=== PATIENT | male | born 1960 | race Caucasian/White ===

== ENCOUNTER 2021-09-25 17:13 | Emergency (ER) | payer MEDICAID ==
[2021-09-25] MEDS ORDERED: Acetaminophen 500 MG Tab PO STA (18:58)
[2021-09-25] MEDS ORDERED: Ibuprofen 800 MG Tab PO STA (18:58)
[2021-09-25] MEDS ORDERED: Acetaminophen 500 MG Tab ONE (18:59)
[2021-09-25] MEDS ORDERED: Ibuprofen 800 MG Tab ONE (18:59)
== END 2021-09-25 19:15 ==
LOC: FB.ED 17:13
DX: S63.501A Unspecified sprain of right wrist, initial encounter (principal); S09.90XA Unspecified injury of head, initial encounter; Z88.8 Allergy status to other drugs, medicaments and biological substances; W18.09XA Striking against other object with subsequent fall, initial encounter
CPT/HCPCS: 70450; 73080-RT; 73110-RT; 99283; 99284-25; A9270-GY

== ENCOUNTER 2021-10-03 15:15 | Emergency (ER) | payer MEDICAID ==
[2021-10-03] MEDS ORDERED: Sodium Chloride 0.9% 10 ML Syringe FLUSH PRN (15:29)
[2021-10-03] MEDS ORDERED: Prochlorperazine 10 MG/2 ML SDV IVPUSH ONE (15:30)
[2021-10-03] MEDS ORDERED: Sodium Chloride 0.9% 1,000 ML IV ONE (15:30)
[2021-10-03] MEDS ORDERED: diphenhydrAMINE 50 MG/ML SDV IVPUSH ONE (15:31)
[2021-10-03] MEDS ORDERED: Ketorolac 30 MG/ML SDV IM ONE (16:58)
== END 2021-10-03 17:50 ==
LOC: FB.ED 15:15
DX: L03.113 Cellulitis of right upper limb (principal); F07.81 Postconcussional syndrome; Z88.8 Allergy status to other drugs, medicaments and biological substances; Z79.82 Long term (current) use of aspirin
CPT/HCPCS: 36415; 70450; 80048; 85025; 96372; 96374; 96375; 99282; 99285-25; J0780; J1200; J1885; J3490; J7030

== ENCOUNTER 2021-10-06 13:41 | Emergency (ER) | payer MEDICAID ==
[2021-10-06] MEDS ORDERED: hydrOXYzine HCl 50 MG/ML SDV IM ONE (13:49)
[2021-10-06] MEDS ORDERED: HYDROmorphone 2 MG/ML SDV IM ONE (13:49)
== END 2021-10-06 15:30 | disposition home or self-care (01) ==
LOC: FB.ED 13:41
DX: L03.113 Cellulitis of right upper limb (principal); M54.2 Cervicalgia; Z79.899 Other long term (current) drug therapy; Z79.82 Long term (current) use of aspirin; Z88.8 Allergy status to other drugs, medicaments and biological substances
CPT/HCPCS: 96372; 99283; J1170; J3410

== ENCOUNTER 2021-10-07 15:37 | Emergency (ER) | payer MEDICAID ==
[2021-10-07] MEDS ORDERED: SUMAtriptan 6 MG/0.5 ML SDV SUBCUT ONE (15:50)
[2021-10-07] MEDS ORDERED: Metoclopramide 10 MG/2 ML SDV IM ONE (16:50)
[2021-10-07] MEDS ORDERED: Ketorolac 30 MG/ML SDV IM ONE (16:50)
[2021-10-07] MEDS ORDERED: Acetaminophen 500 MG Tab PO ONE (16:51)
[2021-10-07] MEDS ORDERED: diphenhydrAMINE 50 MG Cap PO ONE (16:52)
== END 2021-10-07 17:45 ==
LOC: FB.ED 15:37
DX: R51.9 Headache, unspecified (principal); W06.XXXA Fall from bed, initial encounter; Z79.899 Other long term (current) drug therapy; Z88.8 Allergy status to other drugs, medicaments and biological substances; Z79.82 Long term (current) use of aspirin
CPT/HCPCS: 96372; 99282; 99284-25; A9270-GY; J1885; J2765; J3030